=== PATIENT | male | born 1950 | race Caucasian/White ===

== ENCOUNTER → 2021-07-16 07:43 | Outpatient (CLI) | payer MEDICARE, SELFPAY ==
[2021-07-16 20:03] LABS: COVID19 - ORCAS (NP or Nasal) Negative (Negative)
== END ==
PROVIDERS: Family Provider Family Medicine; PCP Family Medicine; Visit Provider Physician Assistant
DX: Z20.822 Contact with and (suspected) exposure to COVID-19 (principal)
CPT/HCPCS: U0003

== ENCOUNTER → 2023-10-13 15:42 | Outpatient (CLI) | payer MEDICARE, SELFPAY ==
--- NOTE | 2023-10-13 | DI.US.S_ITS ---
PROCEDURE: US SCROTUM INDICATIONS: LEFT TESTICLE MASS TECHNIQUE: Real-time scanning was performed of the scrotum and testicles, with image documentation. Color and pulse Doppler interrogation was performed of both testicles. COMPARISON: None. FINDINGS: Right: Testicle is normal in size at 4.7 x 2.6 x 3.5 cm, and homogenous in echotexture. Epididymis demonstrates a 1 cm simple cysts. Small hydrocele without varicoceles. Overlying scrotal skin is normal in thickness. Left: Testicle is normal in size at 3.2 x 2.7 x 3.6 cm, and homogeneous in echotexture. Epididymis demonstrates a 2.1 x 2.3 x 3.6 cm cyst. There are multiple cysts with this being the largest. Small hydrocele without varicoceles. Overlying scrotal skin is normal in thickness. Doppler: Color and pulse Doppler demonstrate normal and symmetric arterial flow in both testicles. IMPRESSION: Multiple bilateral epididymal cysts. They are more prominent on the left. Dictated by: Chelsey Womack M.D. on 10/14/2023 at 12:02 Approved by: Chelsey Womack M.D. on 10/14/2023 at 12:03
--- NOTE | 2023-10-13 15:47 | DI.RAD.S_ITS ---
PROCEDURE: XR THORACIC SPINE 2V INDICATIONS: SCOLIOSIS AND DORSALGIA TECHNIQUE: 2 views of the thoracic spine were acquired. COMPARISON: [facility], CR, XR LUMBAR SPINE 2-3V, 10/13/2023, 16:25. FINDINGS: Bones: No fractures or dislocations. No suspicious bony lesions. 12 pairs of ribs are noted, and appear intact where visualized. Multilevel disc desiccation is present throughout the thoracic spine. Multilevel anterior osteophytes several partially bridging are present. Soft tissues: No paravertebral stripe thickening. IMPRESSION: Multilevel degenerative disc desiccation as well as anterior osteophytes. Dictated by: Chelsey Womack M.D. on 10/14/2023 at 11:16 Approved by: Chelsey Womack M.D. on 10/14/2023 at 11:17
--- NOTE | 2023-10-13 15:47 | DI.RAD.S_ITS ---
PROCEDURE: XR LUMBAR SPINE 2-3V INDICATIONS: SCOLIOSIS AND DORSALGIA TECHNIQUE: 3 views of the lumbar spine were acquired. COMPARISON: [facility], CR, XR THORACIC SPINE 2V, 10/13/2023, 16:25. FINDINGS: Bones: 5 [id number] vertebrae are present. There is minimal rightward curvature with apex at L2. There is trace retrolisthesis of L2 on L3, L3 on L4. Multilevel moderate to severe disc space narrowing is present most prominent at L2-3 with prominent anterior osteophytes and reactive endplate changes. Multilevel foraminal narrowing is present most severe from L4-5 and L5-S1. No vertebral body compression fractures. No suspicious bony lesions. Soft tissues: Overlying bowel gas pattern is normal. No suspicious soft tissue calcifications. IMPRESSION: No acute bony abnormality. Multilevel degenerative changes with foraminal narrowing most severe from L4-5 to L5-S1. Dictated by: Chelsey Womack M.D. on 10/14/2023 at 11:15 Approved by: Chelsey Womack M.D. on 10/14/2023 at 11:15
== END ==
LOC: US 15:45
PROVIDERS: Family Provider Family Medicine; PCP Family Medicine; Referring Provider Family Medicine; Visit Provider Family Medicine
DX: M47.816 Spondylosis without myelopathy or radiculopathy, lumbar region (principal); M47.817 Spondylosis without myelopathy or radiculopathy, lumbosacral region; M48.061 Spinal stenosis, lumbar region without neurogenic claudication; M48.07 Spinal stenosis, lumbosacral region; M25.78 Osteophyte, vertebrae; L72.0 Epidermal cyst; M54.9 Dorsalgia, unspecified; M41.9 Scoliosis, unspecified; N50.89 Other specified disorders of the male genital organs
CPT/HCPCS: 72070; 72100; 76870; 93975